=== PATIENT | male | born 1960 | race Caucasian/White ===

== ENCOUNTER → 2024-10-25 09:40 | Outpatient (REF) | payer MEDICARE, OTHER, SELFPAY | LOC: CLAB 09:40 | PROVIDERS: ATTENDING PHYSICIAN Specialist | DX: R31.0 Gross hematuria (principal) | CPT/HCPCS: 88112 ==

== ENCOUNTER → 2024-10-30 08:07 | Outpatient (REF) | payer MEDICARE, OTHER, SELFPAY | LOC: RAD 08:07 | PROVIDERS: ATTENDING PHYSICIAN Family Medicine | DX: R31.0 Gross hematuria (principal) | CPT/HCPCS: 74178; Q9967 ==

== ENCOUNTER 2024-11-20 10:36 | Inpatient (IN) | payer MEDICARE, OTHER, SELFPAY ==
[2024-11-13 09:09] LABS: Hematocrit 40.3 % (39.0-52.0); Hemoglobin 13.6 g/dL (13.0-18.0); Mean Corp Hgb Conc. 33.7 g/dL (33.0-37.0); Mean Corpuscular Hgb 30.1 pg (27.0-31.0); Mean Corpuscular Volume 89.2 fL (80.0-94.0); Mean Platelet Volume 9.8 fL (7.4-10.4); Platelet Count 229 10^3/uL (130-400); Red Blood Cell Count 4.52 10^6/uL (4.70-6.10); Red Cell Dist. Width 12.4 % (11.5-14.5); White Blood Cell Count 4.6 10^3/uL (4.8-10.8)
[2024-11-13 09:19] LABS: INR 0.91; PT 12.8 Sec (11.4-14.6)
[2024-11-13 09:20] LABS: APTT 29.1 Sec (23.4-35.0)
[2024-11-13 10:13] LABS: Blood Urea Nitrogen 13 mg/dl (9-20); Carbon Dioxide 27 mmol/L (22-30); Chloride 106 mmol/L (98-107); Glucose 105 mg/dl (70-99); Potassium 4.1 mmol/L (3.5-5.1); Sodium 144 mmol/L (135-145); eGFR > 60.00
[2024-11-13 14:10] VITALS: BMI 27.3
[2024-11-20] VITALS (14 sets, daily range): BP systolic 138–169; BP diastolic 80–110; BMI 27.3
[2024-11-20] MEDS: NORMOSOL-R/PLASMALYTE-A 1000 IV (11:00)
[2024-11-20] MEDS: DILAUDID 0.5 MG IV ×3 (14:25→15:00)
--- NOTE | 2024-11-20 16:00 | PTCARENOTE ---
pt admitted to room 2116 at 1530 from PACU via bed. pt oriented to room, call goldsmith, bed controls and plan of care. pt drowsy but easily arousable. tolerating sips of ice water. IVF infusing. abdomen w/5 small dressings covered with tegaderm.
scant amount of pink drainage noted. care ongoing.
[2024-11-20] MEDS: COLACE 100 MG PO ×2 (16:37→21:16)
[2024-11-20] MEDS: PROTONIX PO (16:38)
[2024-11-20] MEDS: ULTRAM 50 MG PO (21:16)
[2024-11-20] MEDS: TYLENOL 1000 MG PO (22:51)
[2024-11-20] MEDS: MYLICON 80 MG PO (23:13)
[2024-11-21 03:15] VITALS: BP 140/80
--- NOTE | 2024-11-21 03:40 | DOWNTIME ---
There was a [employer] Operator Downtime on 11/21/2024 from 0200 to 11/22/2023 at 0318 . Downtime documentation of patient's care, including medication administrations, has been reconciled in the electronic record per guidelines. Refer to the
patient's paper chart under the miscellaneous tab to see printed paper medication records and downtime forms.
[2024-11-21] MEDS: TYLENOL 1000 MG PO (06:14)
[2024-11-21 07:15] VITALS: BP 141/84
[2024-11-21 07:55] LABS: Hematocrit 36.6 % (39.0-52.0); Hemoglobin 12.4 g/dL (13.0-18.0); Mean Corp Hgb Conc. 33.9 g/dL (33.0-37.0); Mean Corpuscular Hgb 29.7 pg (27.0-31.0); Mean Corpuscular Volume 87.6 fL (80.0-94.0); Mean Platelet Volume 9.7 fL (7.4-10.4); Platelet Count 220 10^3/uL (130-400); Red Blood Cell Count 4.18 10^6/uL (4.70-6.10); Red Cell Dist. Width 12.3 % (11.5-14.5); White Blood Cell Count 9.8 10^3/uL (4.8-10.8)
[2024-11-21] MEDS: COLACE 100 MG PO (08:11)
[2024-11-21] MEDS: PROTONIX 40 MG PO (08:12)
[2024-11-21] MEDS: PROSCAR 5 MG PO (08:18)
[2024-11-21 08:28] LABS: Blood Urea Nitrogen 13 mg/dl (9-20); Carbon Dioxide 26 mmol/L (22-30); Chloride 103 mmol/L (98-107); Estimated Creatinine Clearance 73 ml/min; Glucose 122 mg/dl (70-99); Potassium 4.5 mmol/L (3.5-5.1); Sodium 138 mmol/L (135-145); eGFR > 60.00
--- NOTE | 2024-11-21 09:10 | CM ---
Cm reviewed medical records. Patient lives independently with . Patient does not have a history of VN, SNF or DME> Patient is active with his PCP. Patient uses [facility] in [place] for medication services.
PLAN: Home no needs.
--- NOTE | 2024-11-21 10:19 | W.PN.URO.CBU ---
Addendum entered and electronically signed by Jayden Ma MD 11/29/24 10:50:
final pathology demonstrated renal oncocytoma
Original Note:
Today's Communication / Plan
-
discharge
Assessment / Plan
-
stable
Diagnosis
-
Date of Service: November 21, 2024
-
Patient Diagnosis: right renal mass s/p laparoscopic radical nephrectomy
Post Op Day: 1
Subjective
-
'heartburn'
expected abdominal discomfort
Objective
-
Vital Signs
Temp Pulse Resp BP Pulse Ox
98.0 F 75 16 141/84 98
11/21/24 07:15 11/21/24 07:15 11/21/24 07:15 11/21/24 07:15 11/21/24 07:15
Intake and Output
11/20/24 11/21/24 11/22/24
06:59 06:59 06:59
Intake Total 980 / 980
Output Total 1849
Balance -870 / -870
Intake:
Oral fluids 480 / 480
IV fluids (Total) 500 / 500
Normosal 500 / 500
Output:
Urine, Charles 1849
Other:
Number of approximated MODERATE 2
amounts of urine
Laboratory Results
11/21/24 07:07
11/21/24 07:07
Physical Exam
-
General - well developed, well nourished, no acute distress
Chest - clear bilaterally
Abdomen - soft, non-tender, positive bowel sounds, no distention
Skin - warm & dry with no rash
Neuro - AOx3, no motor deficits
Extremities - no clubbing, no cyanosis, no edema
Dressings - clean, dry, intact
[2024-11-21] MEDS: MYLICON 80 MG PO (10:25)
[2024-11-21 11:05] VITALS: BP 160/88
--- NOTE | 2024-11-26 16:42 | PN.CDI ---
CDI
- -
CDI:
Physician Documentation Request
Admit Date: 11/20/24 10:36
Dear Doctor,
Please review the following and provide your response in the progress notes.
The purpose of this query is not to question medical judgement, but to ensure the accuracy of the conditions reported for your patient.
Diagnosis:
The diagnosis is documented in the record on (include dates and if H&P, progress note, consult etc.).
There is either a lack of clinical support for this condition in the current medical record, or there is a lack of recognized standard criteria to support the condition.
Clinical indicators:
The request is for one of the following:
- Additional documentation to support the condition. Indicate if this is in lieu of what may be considered standard criteria, and/or support why the standard criteria may not be present for this patient.
- A more appropriate diagnosis, reflecting the patient's condition
- Diagnosis (specify) remains a known or suspected condition for this patient and is further supported by (include additional documentation in the medical record)
- Diagnosis (specify) has been ruled out and a more appropriate diagnosis for this patient's condition is .
- Other (please specify)
- Unable to determine
Use of terms such as suspected, likely, concern for, or probable (associated with a specific diagnosis that is being evaluated, monitored, or treated as if it exists) are acceptable and can be coded in the inpatient setting, when documented at the
time of discharge.
Thank you,
Gi Leung
CDI Specialist
Please use your independent medical judgment in providing your response.
Physician Documentation Request
Admit Date: [f_Reg Admit Date Time]
Dear Doctor Ma
Please review the following and provide your response in the progress notes.
Clinical Indicators:
The diagnosis of Oncocytoma was included in the signed path report.
Additional clinical indicators in the chart include:
OR: R renal mass, highly suspicious for malignancy
Please indicate in your progress notes if you are in agreement that the above diagnosis is valid for this patient:
Malignant neoplasm of the R kidney is a valid diagnosis (Please include it in your progress notes)
Benign neoplasm(oncocytoma) is a valid diagnosis for this patient
Malignancy is not yet confirmed but remains a suspected condition
Other
Use of terms such as suspected, likely, concern for, or probable are acceptable for a diagnosis that is being evaluated, monitored or treated as if it exists and can be coded in the inpatient setting, when documented at the time of discharge.
Thank you,
Gi Leung
S[employer] Consultant Inpatient
Please use your independent medical judgment in providing your response.
== END 2024-11-21 12:01 | disposition home or self-care (01) | DRG 658 ==
LOC: 2 SOUTH 10:36
PROVIDERS: ADMITTING PHYSICIAN Specialist; FAMILY PHYSICIAN Family Medicine
PROC: 0TT Urinary System, Resection (ICD-10-PCS; 2024-11-20)
DX: D30.01 Benign neoplasm of right kidney (principal); K21.9 Gastro-esophageal reflux disease without esophagitis; Z85.820 Personal history of malignant melanoma of skin; Z79.899 Other long term (current) drug therapy
CPT/HCPCS: 88307; 36415; 80048; 85027; 85610; 85730; 86850; 86900; 86901; 88341; 88342; 93005

== ENCOUNTER → 2025-04-14 16:13 | Outpatient (REF) | payer MEDICARE, OTHER, SELFPAY | LOC: MRI 3T 16:13 | PROVIDERS: ATTENDING PHYSICIAN Specialist; FAMILY PHYSICIAN Family Medicine | DX: R97.20 Elevated prostate specific antigen [PSA] (principal) | CPT/HCPCS: 72197; A9575 ==